=== PATIENT | female | born 1970 | race Caucasian/White ===

== ENCOUNTER 2020-11-30 15:23 | Outpatient (REF) | payer OTHER, SELFPAY | END 2020-11-30 15:24 | disposition home or self-care (01) | LOC: HO.LAB 15:23 | PROVIDERS: Visit Provider Internal Medicine | DX: Z20.822 Contact with and (suspected) exposure to COVID-19 (principal) | CPT/HCPCS: 36415; C9803; U0003 ==

== ENCOUNTER 2021-02-14 11:58 | Outpatient (REF) | payer OTHER, SELFPAY | END 2021-02-14 11:59 | disposition home or self-care (01) | LOC: HO.WFDLDS 11:58 | PROVIDERS: Visit Provider Internal Medicine | DX: Z20.822 Contact with and (suspected) exposure to COVID-19 (principal) | CPT/HCPCS: 36415; C9803; U0003; U0005 ==

== ENCOUNTER 2022-07-01 08:37 | Outpatient (REF) | payer OTHER, SELFPAY ==
[2022-07-01 11:24] LABS: MANUAL DIFF FLAG NO
[2022-07-01 11:28] LABS: Appearance Urine HAZY; Color Urine YELLOW; Glucose Urine UA NEG (NEG); Leukocyte Esterase Urine NEG (NEG); Nitrite Urine NEG (NEG); PH 6.5 (5.0-8.0); Urine Blood 2+ (NEG); Urine Ketones NEG (NEG); Urine Protein NEG (NEG-TRACE)
[2022-07-01 11:31] LABS: Basophils Percent Auto 0.7 % (0-2); Eosinophils Absolute Auto 0.2 X10*3/uL (0.0-0.4); Eosinophils Percent Auto 4.1 % (0-4); Hematocrit 39.6 % (37.0-47.0); Hemoglobin 12.6 g/dl (12.0-16.0); Imm Gran Abs Auto 0.01 X10*3/uL (0.00-0.03); Imm Gran Pct Auto 0.2 % (0.0-0.4); Lymphocytes Absolute Auto 1.1 X10*3/uL (1.2-4.9); Lymphocytes Percent Auto 26.6 % (20-40); Mean Corpuscular HGB Conc 31.8 g/dl (31.0-35.0); Mean Corpuscular Hemoglobin 26.8 pg (27.0-33.0); Mean Corpuscular Volume 84.3 fL (80.0-98.0); Mean Platelet Volume 11.3 fL (9.4-12.3); Monocytes Absolute Auto 0.4 X10*3/uL (0.1-1.2); Monocytes Percent Auto 8.5 % (2-11); Neutrophils Absolute Auto 2.5 x10*3/uL (2.0-8.3); Neutrophils Percent Auto 59.9 % (45-73); Platelet Count 212 X10*3/uL (160-400); Red Cell Distribution Width 13.5 % (11.0-16.0); White Blood Count 4.1 X10*3/uL (4.8-10.8)
[2022-07-01 11:59] LABS: Alanine Aminotransferase 13 U/L (0-31); Albumin Level 4.1 g/dL (3.5-5.0); Alkaline Phosphatase 61 U/L (39-117); Anion Gap 14 (12-20); Aspartate Amino Transferase 12 U/L (5-31); Bilirubin Total 0.5 mg/dL (0.0-1.0); Blood Urea Nitrogen 11 mg/dL (9-16); Calcium 9.2 mg/dL (8.4-10.2); Carbon Dioxide 25 mmol/L (22-29); Chloride 106 mmol/L (96-108); Cholesterol 227 mg/dL; Estimated Glomerular Filt Rate > 60; Glucose Fasting 100 mg/dL (60-99); HDL Cholesterol 57 mg/dL; LDL Cholesterol Calculated 150 mg/dl; Potassium 4.8 mmol/L (3.3-5.1); Sodium 140 mmol/L (135-145); Total Protein 6.9 g/dL (6.5-8.0); Triglycerides 102 mg/dL
[2022-07-01 12:00] LABS: Renal Epithelial Cells Urine TRACE /LPF; Squamous Epithelial Cell Urine 1+ /LPF; WBC Urine 0 /HPF (0-4)
== END 2022-07-01 08:38 | disposition home or self-care (01) ==
LOC: HO.HMGCLDS 08:37
PROVIDERS: PCP Internal Medicine; Visit Provider Internal Medicine
DX: Z00.00 Encounter for general adult medical examination without abnormal findings (principal)
CPT/HCPCS: 36415; 80053; 80061; 81001; 84443; 85025

== ENCOUNTER 2022-08-12 07:28 | Outpatient (REF) | payer OTHER, SELFPAY ==
--- NOTE | ~2022-08-12 | XR_ITS ---
EXAMINATION: XR PELVIS AND HIP, RIGHT XR KNEE STANDING, BILATERAL XR KNEE, RIGHT CLINICAL INFORMATION: Pain. COMPARISON: None TECHNIQUE: AP pelvis and right hip 2 views. AP bilateral knee standing and right knee 2 views. FINDINGS: AP PELVIS: There is normal symmetry of bilateral hip joints and SI joints. A small bone fragment is seen lateral to the right acetabulum, likely old avulsion injury. The pelvic bones are normal. The soft tissues are normal. RIGHT HIP: There is a small bone fragment adjacent to the lateral acetabulum, likely old injury. No acute fracture or dislocation seen. No lytic or sclerotic process seen. The soft tissues are normal. AP BILATERAL KNEE STANDING: There is mild reduction in the medial compartment joint space of both knees without bony erosive changes. The lateral compartment joint space is normal. There is a sclerotic density left distal femur, likely old bone infarct. Minimal lateral tibial spurring seen in the lateral compartment right knee. RIGHT KNEE: The patellofemoral compartment joint spaces are mildly narrowed with minimal suprapatellar joint effusion. No loose bodies, bony erosive changes or fracture seen. XR/XR knee RT 2V IMPRESSION: Small bone fragment adjacent to the right lateral acetabulum, likely old injury. No acute fracture or dislocation involving the pelvis or the right hip. Mild degenerative changes medial compartment both knees and patellofemoral compartment right knee. No visible fracture, dislocation or loose bodies. No joint effusion suspected right knee. Small bone infarct left distal femur and mild spurring right lateral tibial plateau.
--- NOTE | ~2022-08-12 | XR_ITS ---
EXAMINATION: XR PELVIS AND HIP, RIGHT XR KNEE STANDING, BILATERAL XR KNEE, RIGHT CLINICAL INFORMATION: Pain. COMPARISON: None TECHNIQUE: AP pelvis and right hip 2 views. AP bilateral knee standing and right knee 2 views. FINDINGS: AP PELVIS: There is normal symmetry of bilateral hip joints and SI joints. A small bone fragment is seen lateral to the right acetabulum, likely old avulsion injury. The pelvic bones are normal. The soft tissues are normal. RIGHT HIP: There is a small bone fragment adjacent to the lateral acetabulum, likely old injury. No acute fracture or dislocation seen. No lytic or sclerotic process seen. The soft tissues are normal. AP BILATERAL KNEE STANDING: There is mild reduction in the medial compartment joint space of both knees without bony erosive changes. The lateral compartment joint space is normal. There is a sclerotic density left distal femur, likely old bone infarct. Minimal lateral tibial spurring seen in the lateral compartment right knee. RIGHT KNEE: The patellofemoral compartment joint spaces are mildly narrowed with minimal suprapatellar joint effusion. No loose bodies, bony erosive changes or fracture seen. XR/XR knee standing BI IMPRESSION: Small bone fragment adjacent to the right lateral acetabulum, likely old injury. No acute fracture or dislocation involving the pelvis or the right hip. Mild degenerative changes medial compartment both knees and patellofemoral compartment right knee. No visible fracture, dislocation or loose bodies. No joint effusion suspected right knee. Small bone infarct left distal femur and mild spurring right lateral tibial plateau.
--- NOTE | ~2022-08-12 | XR_ITS ---
EXAMINATION: XR PELVIS AND HIP, RIGHT XR KNEE STANDING, BILATERAL XR KNEE, RIGHT CLINICAL INFORMATION: Pain. COMPARISON: None TECHNIQUE: AP pelvis and right hip 2 views. AP bilateral knee standing and right knee 2 views. FINDINGS: AP PELVIS: There is normal symmetry of bilateral hip joints and SI joints. A small bone fragment is seen lateral to the right acetabulum, likely old avulsion injury. The pelvic bones are normal. The soft tissues are normal. RIGHT HIP: There is a small bone fragment adjacent to the lateral acetabulum, likely old injury. No acute fracture or dislocation seen. No lytic or sclerotic process seen. The soft tissues are normal. AP BILATERAL KNEE STANDING: There is mild reduction in the medial compartment joint space of both knees without bony erosive changes. The lateral compartment joint space is normal. There is a sclerotic density left distal femur, likely old bone infarct. Minimal lateral tibial spurring seen in the lateral compartment right knee. RIGHT KNEE: The patellofemoral compartment joint spaces are mildly narrowed with minimal suprapatellar joint effusion. No loose bodies, bony erosive changes or fracture seen. XR/XR hip RT w PEL1V IMPRESSION: Small bone fragment adjacent to the right lateral acetabulum, likely old injury. No acute fracture or dislocation involving the pelvis or the right hip. Mild degenerative changes medial compartment both knees and patellofemoral compartment right knee. No visible fracture, dislocation or loose bodies. No joint effusion suspected right knee. Small bone infarct left distal femur and mild spurring right lateral tibial plateau.
== END 2022-08-12 07:29 | disposition home or self-care (01) ==
LOC: HO.HOSX 07:28
PROVIDERS: Visit Provider Physician Assistant
DX: M25.561 Pain in right knee (principal); M25.551 Pain in right hip; M25.562 Pain in left knee
CPT/HCPCS: 73502; 73560; 73565

== ENCOUNTER 2022-08-26 15:43 | Outpatient (REF) | payer OTHER, SELFPAY ==
--- NOTE | ~2022-08-26 | US_ITS ---
EXAMINATION: US PELVIS LIMITED (BLADDER) CLINICAL INFORMATION: Retention of urine. COMPARISON: None TECHNIQUE: Real-time imaging of the bladder. FINDINGS: BLADDER: Well distended and normal. Bilateral ureteral jets are demonstrated. Prevoid bladder volume is 597 mL. Postvoid bladder volume is 23 mL. US/US bladder IMPRESSION: Small postvoid residual bladder volume. Normal bilateral ureteral jets seen.
== END 2022-08-26 15:44 | disposition home or self-care (01) ==
LOC: HO.US 15:43
PROVIDERS: Visit Provider Internal Medicine
DX: R33.9 Retention of urine, unspecified (principal)
CPT/HCPCS: 76857

== ENCOUNTER 2022-09-22 10:22 | Outpatient (REF) | payer OTHER, SELFPAY ==
--- NOTE | ~2022-09-22 | XR_ITS ---
EXAMINATION: XR LUMBAR SPINE XR SACROILIAC JOINT CLINICAL INFORMATION: Radiculopathy COMPARISON: None TECHNIQUE: 7 views of the lumbosacral spine 3 views of the bilateral sacroiliac joints FINDINGS: No acute visible fracture or dislocation. Mild multilevel degenerative changes with disc space narrowing osteophyte formation and lower lumbar spine facet arthropathy. Vertebral body heights and disc spaces are maintained. Posterior elements are intact. Paraspinal soft tissues are unremarkable. Bilateral sacroiliac joints are patent. Visualized bowel gas is unremarkable. XR/XR lumbar spine 6V w bending IMPRESSION: 1. No acute visible fracture or dislocation. 2. Mild multilevel degenerative changes. 3. Bilateral sacroiliac joints are patent.
--- NOTE | ~2022-09-22 | US_ITS ---
EXAMINATION: US RETROPERITONEAL LIMITED (RENAL ONLY) CLINICAL INFORMATION: Other microscopic hematuria. COMPARISON: None TECHNIQUE: Real-time imaging of the kidneys. FINDINGS: RIGHT KIDNEY: 10.8 x 4.3 x 4.8 cm (SAG x AP x TRV). The kidney is normal in size, contour, and echogenicity. Renal cortical thickness is normal. No calculi or focal parenchymal lesions. No hydronephrosis. LEFT KIDNEY: 10.5 x 4.9 x 3.9 cm (SAG x AP x TRV). The kidney is normal in size, contour, and echogenicity. Renal cortical thickness is normal. No calculi or focal parenchymal lesions. No hydronephrosis. US/US renal BI IMPRESSION: No significant sonographic abnormality.
--- NOTE | ~2022-09-22 | XR_ITS ---
EXAMINATION: XR LUMBAR SPINE XR SACROILIAC JOINT CLINICAL INFORMATION: Radiculopathy COMPARISON: None TECHNIQUE: 7 views of the lumbosacral spine 3 views of the bilateral sacroiliac joints FINDINGS: No acute visible fracture or dislocation. Mild multilevel degenerative changes with disc space narrowing osteophyte formation and lower lumbar spine facet arthropathy. Vertebral body heights and disc spaces are maintained. Posterior elements are intact. Paraspinal soft tissues are unremarkable. Bilateral sacroiliac joints are patent. Visualized bowel gas is unremarkable. XR/XR sacroiliac joint min 3V IMPRESSION: 1. No acute visible fracture or dislocation. 2. Mild multilevel degenerative changes. 3. Bilateral sacroiliac joints are patent.
--- NOTE | ~2022-09-22 | XR_ITS ---
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 FINDINGS: No acute visible fracture or dislocation. Straightening of normal cervical curvature which may be secondary to patient positioning versus muscle spasm. Visualized dens is intact. Lateral masses are symmetric. Mild multilevel degenerative changes with disc space narrowing, osteophyte formation greatest at C6-C7, and facet arthropathy. Vertebral body heights and disc spaces are otherwise maintained. Prevertebral soft tissues are unremarkable. Posterior elements are intact. Paraspinal soft tissues are unremarkable. Visualized portions of the upper chest are unremarkable. XR/XR cervical spine 3V IMPRESSION: 1. No acute visible fracture or dislocation. 2. Straightening of normal cervical curvature which may be secondary to patient positioning versus muscle spasm. 3. Mild multilevel degenerative changes greatest at C6-C7.
== END 2022-09-22 10:23 | disposition home or self-care (01) ==
LOC: HO.HMGCX 10:22
PROVIDERS: Absent Provider Nurse Practitioner Family; PCP Internal Medicine; Visit Provider Internal Medicine
DX: R31.29 Other microscopic hematuria (principal); M47.816 Spondylosis without myelopathy or radiculopathy, lumbar region; M54.16 Radiculopathy, lumbar region; M53.3 Sacrococcygeal disorders, not elsewhere classified; M47.812 Spondylosis without myelopathy or radiculopathy, cervical region; M62.838 Other muscle spasm
CPT/HCPCS: 72040; 72114; 72202; 76775

== ENCOUNTER 2022-11-03 09:05 | Outpatient (REF) | payer OTHER, SELFPAY | END 2022-11-03 09:06 | disposition home or self-care (01) | LOC: HO.HOSX 09:05 | PROVIDERS: Visit Provider Physician Assistant | DX: Z13.89 Encounter for screening for other disorder (principal) ==

== ENCOUNTER 2022-11-10 07:30 | Outpatient (REF) | payer OTHER, SELFPAY | END 2022-11-10 07:31 | disposition home or self-care (01) | LOC: HO.HOSX 07:30 | PROVIDERS: Visit Provider Physician Assistant | DX: M25.551 Pain in right hip (principal) | CPT/HCPCS: 73502 ==

== ENCOUNTER 2022-12-08 09:00 | Outpatient (RCR) | payer OTHER, SELFPAY | END 2023-01-15 08:13 | disposition home or self-care (01) | LOC: HO.PTWFD 09:00 | PROVIDERS: PCP Internal Medicine; Visit Provider Nurse Practitioner Family | DX: M53.3 Sacrococcygeal disorders, not elsewhere classified (principal); M62.838 Other muscle spasm; M47.812 Spondylosis without myelopathy or radiculopathy, cervical region; M47.816 Spondylosis without myelopathy or radiculopathy, lumbar region; M54.16 Radiculopathy, lumbar region | CPT/HCPCS: 97110; 97140; 97161 ==

== ENCOUNTER 2023-02-24 15:17 | Outpatient (REF) | payer OTHER, SELFPAY ==
[2023-02-25 12:03] LABS: Influenza A PCR POSITIVE (Negative); Influenza B PCR NEGATIVE (Negative); Resp Syncy Virus RNA Qual PCR NEGATIVE (Negative); SARS COV2 PCR INHOUSE NEGATIVE (Negative)
== END 2023-02-24 15:18 | disposition home or self-care (01) ==
LOC: HO.LAB 15:17
PROVIDERS: Visit Provider Nurse Practitioner Family
DX: Z20.822 Contact with and (suspected) exposure to COVID-19 (principal); J06.9 Acute upper respiratory infection, unspecified
CPT/HCPCS: 0241U

== ENCOUNTER 2023-08-13 13:59 | Outpatient (AMB) | payer OTHER, SELFPAY ==
[2023-08-13 14:01] VITALS: BP 104/62; PULSE 68; O2SAT 96; BMI 28.2
--- NOTE | 2023-08-13 14:01 | MHC.PC.OV ---
Vital Signs 08/13/23 14:01 Height 5 ft 6 in Weight 175 lb BMI 28.2 BP 104/62 Blood Pressure Location Lt brachial Position Sitting Pulse 68 Pulse Source Pulse Oximeter Pulse Oximetry (%) 96 Oxygen Delivery Method Room Air Intake Visit Reasons: 3 month f/u hyperlipidemia Intake Note: Pt is here today for 3 months follow up visit. Allergies No Known Allergies Allergy (Verified 08/13/23 14:08) Medication List - Last Reconciled 08/13/23 by Miri Marlow MD No Known Home Meds Tobacco use date assessed: 08/13/23 Dental Screening Dental Screen Date: 08/13/23 Did you have a dental visit in the last 12 months?: Yes Did you have a dental problem in the last 6 months where you did not have access to dental care?: No Was dental information given to patient?: Patient has dentist HPI HPI Comments History of Present Illness Details Patient presents for physical. She complains of chronic lower back pain radiating to left lower extremity worse when sitting for long time. Patient denies any weakness or numbness in extremities. She had a lumbar spine x-ray consistent with mild degenerated changes a few months ago. [facility], [facility] Family History Father Lung cancer Mother No problems noted. Social History Housing: House Patient Tobacco Use Status: Never used Tobacco e-Cigarette/Vaping Use: Never Used service: No Current occupational status: unemployed Cognitive needs: No Hearing needs: No Vision needs: Yes Questionnaire Thrive Questionnaire Date Thrive assessed: 03/02/23 JJ-7 AMB Questionnaire JJ-7 Date JJ - 7 assessed: 03/02/23 Source: Developed by Drs. Ramesh Jackson, Tali Akins, Jose Manuel Allen and colleagues, with an educational derek from [employer]. Review of Systems Const All systems reviewed & are unremarkable except as noted in HPI and below Reports no additional complaints Eyes Reports no additional complaints ENT Reports no additional complaints Card Reports no additional complaints Resp Reports no additional complaints GI Reports no additional complaints Reports no additional complaints Physical exam (Primary Care) Vital Signs: Last Vital Signs Pulse 68 08/13/23 14:01 BP 104/62 08/13/23 14:01 Pulse Ox 96 08/13/23 14:01 Oxygen Delivery Method Room Air 08/13/23 14:01 BMI result Body Mass Index 28.2 Tobacco/Smoking Status: Tobacco use Status Tobacco use date assessed 08/13/23 08/13/23 14:12 Patient Tobacco Use Status Never used Tobacco 08/13/23 14:12 e-Cigarette/Vaping Use Never Used 08/13/23 14:04 Thrive Assessment: Date of Thrive Assessment Date Thrive assessed 03/02/23 08/13/23 14:04 Const General: no acute distress HENMT Head: Yes normal to inspection Ears: hearing grossly normal bilaterally General nose exam: Normal external nose present Face and sinus: Yes normal facial exam Mouth: Normal oral and palatal mucosa present Throat: Yes posterior oropharynx normal Eyes General: appearance normal, both eyes and all related structures Neck Neck: Yes no lymphadenopathy and Yes supple Resp Effort & Inspection: normal respiratory effort Auscultation: clear to auscultation bilaterally Cardio Rhythm: regular rhythm Heart sounds: S1 normal heart sound present and S2 normal heart sound present GI Inspection: Yes normal to inspection Palpation (GI): Soft to palpation Percussion: Yes normal to percussion Auscultation: normal bowel sounds Assessment and Plan Assessment & Plan (1) Hyperlipidemia: Code(s): E78.5 - Hyperlipidemia, unspecified Plan: Low-cholesterol diet regular physical activity fish oil supplement were recommended patient will return in 2 months for the fasting blood work (2) Lumbar radiculopathy: Code(s): M54.16 - Radiculopathy, lumbar region Plan: Lower back exercises given to the patient. If the symptoms persist she was advised to schedule physical therapy (3) Annual physical exam: Code(s): Z00.00 - Encounter for general adult medical examination without abnormal findings Plan: Well-balanced diet regular physical activity discussed with the patient. She is up-to-date with mammogram colonoscopy and Pap smear by ham trimmer (4) Normal pelvic exam: Comment: [facility] ham trimmer [place] 09/13 Code(s): Z01.419 - Encounter for gynecological examination (general) (routine) without abnormal findings (5) Hx of colonoscopy: Comment: Dr. Gee 2020, colonoscopy recheck in 5 years Code(s): Z98.890 - Other specified postprocedural states Orders: Orders Comprehensive [place]. Panel Fast 2 Months E78.5 - Hyperlipidemia, unspecified TSH reflex Free T4 2 Months E78.5 - Hyperlipidemia, unspecified TSH reflex Free T4 365 Days E78.5 - Hyperlipidemia, unspecified, Z00.00 - Encounter for general adult medical examination without abnormal findings Lipid Panel 2 Months E78.5 - Hyperlipidemia, unspecified Complete Blood Count Auto Diff 2 Months E78.5 - Hyperlipidemia, unspecified Comprehensive [place]. Panel Fast 365 Days E78.5 - Hyperlipidemia, unspecified, Z00.00 - Encounter for general adult medical examination without abnormal findings Lipid Panel 365 Days E78.5 - Hyperlipidemia, unspecified, Z00.00 - Encounter for general adult medical examination without abnormal findings Complete Blood Count Auto Diff 365 Days E78.5 - Hyperlipidemia, unspecified, Z00.00 - Encounter for general adult medical examination without abnormal findings Coding Level of Care Code Est Pt Prev Care 40-64y(37311) Diagnoses Hyperlipidemia E78.5 Lumbar radiculopathy M54.16 Annual physical exam Z00.00 Normal pelvic exam Z01.419 Hx of colonoscopy Z98.890
== END 2023-08-13 14:45 | disposition home or self-care (01) ==
PROVIDERS: PCP Internal Medicine; Visit Provider Internal Medicine
DX: Z00.00 Encounter for general adult medical examination without abnormal findings (principal); E78.5 Hyperlipidemia, unspecified; M54.16 Radiculopathy, lumbar region; Z98.890 Other specified postprocedural states
CPT/HCPCS: 99396

== ENCOUNTER 2024-06-06 10:52 | Outpatient (AMB) | payer OTHER, SELFPAY ==
--- NOTE | 2024-06-06 10:56 | A.OFFPC_ITS ---
Vital Signs 06/06/24 10:58 Height 5 ft 6 in Weight 173 lb BMI 27.9 BP 100/66 Blood Pressure Location Lt brachial Position Sitting Pulse 70 Pulse Source Pulse Oximeter Pulse Oximetry (%) 98 Oxygen Delivery Method Room Air Intake Visit Reasons: Liver pain Intake Note: Pt ios here today for a sick visit. Pt c/o R abdominal pain. Pt states that both sides are bothering her but mostly R side. Pt states that when she bends she gets burning sensation and sometimes sharp pain. Allergies No Known Allergies Allergy (Verified 08/13/23 14:08) Medication List - Last Reconciled 06/06/24 by Miri Marlow MD famotidine (Pepcid) 40 mg PO BEDTIME Tobacco use date assessed: 08/13/23 Dental Screening Dental Screen Date: 08/13/23 HPI Liver pain HPI Details Patient complains of right upper quadrant abdominal pain worse after eating fatty meals with occasional nausea but no vomiting for a few weeks getting, more frequent recently. Patient denies change in bowel habits fever chills back pain dysuria. [facility] Surgical History (Updated 06/06/24 @ 11:02 by ISAC Membreno) No pertinent past surgical history Family History Father Lung cancer Mother No problems noted. Social History Housing: House Patient Tobacco Use Status: Never used Tobacco e-Cigarette/Vaping Use: Never Used service: No Current occupational status: unemployed Cognitive needs: No Hearing needs: No Vision needs: Yes Questionnaire PHQ-9 Over the last 2 weeks, how often have you been bothered by any of the following problems? 1. Little interest or pleasure in doing things: not at all 2. Feeling down, depressed, or hopeless: not at all 3. Trouble falling or staying asleep, or sleeping too much: not at all 4. Feeling tired or having little energy: not at all 5. Poor appetite or overeating: not at all 6. Feeling bad about yourself - or that you are a failure or have let yourself or your family down: not at all 7. Trouble concentrating on things, such as reading the newspaper or watching television: not at all 8. Moving or speaking so slowly that other people could have noticed. Or the opposite - being so fidgety or restless that you have been moving around a lot more than usual: not at all 9. Thoughts that you would be better off or of hurting yourself in some way: not at all Total score: 0 Depression Screening Interpretation: Negative Depression Screening Done: Yes Source: Developed by Drs. Ramesh Jackson, Tali Akins, Jose Manuel lAlen and colleagues, with an educational derek from [email or web address]. Thrive Questionnaire Date Thrive assessed: 06/06/24 I am a: Patient What is your living situation today?: I have a steady place to live Within the past 12 months, did the food you bought not last and you didn't have the money to get more?: Never true Within the past 12 months, did you worry whether your food would run out before you got money to buy more?: Never true Do you have trouble paying for medicines?: No Do you have trouble getting transportation to medical appointments?: No Do you have trouble paying your heating and electricity bill?: No Do you have trouble taking care of your child, family member or friend?: No Do you have trouble with day-to-day activities such as bathing, preparing meals, shopping, managing finances, etc.?: No Are you currently unemployed and looking for a job?: No Are you interested in more education?: No Please select the resources that you would like help with: Housing/Senior Care Currently or been in a relationship where the following occur: No concerns reported THRIVE Score: 0 AUDIT C Alcohol Use Questionnaire (AUDIT-C) 1. How often do you have a drink containing alcohol?: Never Total Score: 0 JJ-7 AMB Questionnaire JJ-7 Date JJ - 7 assessed: 06/06/24 Feeling nervous, anxious, or on edge: 0 = Not at all Not being able to stop or control worryin = Not at all Worrying too much about different things: 0 = Not at all Trouble relaxin = Not at all Being so restless that it is hard to sit still: 0 = Not at all Becoming easily annoyed or irritable: 0 = Not at all Feeling afraid as if something awful might happen: 0 = Not at all Total JJ-7 score (0-4 normal; 5-9 mild; 10-14 moderate; 15-21 severe): 0 Source: Developed by Drs. Ramesh Jackson, Tali Akins, Jose Manuel Allen and colleagues, with an educational derek from [email or web address]. Review of Systems Const All systems reviewed & are unremarkable except as noted in HPI and below Eyes Reports no additional complaints ENT Reports no additional complaints Card Reports no additional complaints Resp Reports no additional complaints GI Reports no additional complaints Physical exam (Primary Care) Vital Signs: Last Vital Signs Pulse 70 06/06/24 10:58 BP 100/66 06/06/24 10:58 Pulse Ox 98 06/06/24 10:58 Oxygen Delivery Method Room Air 06/06/24 10:58 BMI result Body Mass Index 27.9 Tobacco/Smoking Status: Tobacco use Status Tobacco use date assessed 08/13/23 06/06/24 10:57 Patient Tobacco Use Status Never used Tobacco 06/06/24 10:57 e-Cigarette/Vaping Use Never Used 06/06/24 10:57 PHQ-9: PHQ-9 Score PHQ-9: Total score 0 06/06/24 11:03 Depression Screening Interpretation: Negative Thrive Assessment: Date of Thrive Assessment Date Thrive assessed 06/06/24 06/06/24 11:03 Currently or been in a relationship where the following occur: No concerns reported Const General: no acute distress HENMT Throat: Yes posterior oropharynx normal Eyes General: appearance normal, both eyes and all related structures Resp Effort & Inspection: normal respiratory effort Auscultation: clear to auscultation bilaterally Cardio Rhythm: regular rhythm Heart sounds: S1 normal heart sound present and S2 normal heart sound present GI Inspection: Yes normal to inspection Palpation (GI): Soft to palpation, Tenderness to palpation present (GI) in the RUQ; العراقي's sign negative and No Rebound tenderness present Percussion: Yes normal to percussion Auscultation: normal bowel sounds Assessment and Plan Assessment & Plan (1) RUQ abdominal pain: Code(s): R10.11 - Right upper quadrant pain Plan: Obtain abdominal ultrasound to rule out gallstones, check basic blood work and urinalysis. Try of 40 mg of Pepcid for 1 month Orders: Orders Comprehensive [place]. Panel Fast Today R10.9 - Unspecified abdominal pain Lipid Panel Today R10.9 - Unspecified abdominal pain Complete Blood Count Auto Diff Today R10.9 - Unspecified abdominal pain TSH reflex Free T4 Today R10.9 - Unspecified abdominal pain UA w Microscopic Today R10.9 - Unspecified abdominal pain US abdomen complete Today R10.11 - Right upper quadrant pain Medications: New famotidine (Pepcid) 40 mg PO BEDTIME 30 tabs 1RF Coding Level of Care Code Est Pt Level 3 (43525) Diagnoses RUQ abdominal pain R10.11
[2024-06-06 10:58] VITALS: BP 100/66; PULSE 70; O2SAT 98; BMI 27.9
== END 2024-06-06 11:40 | disposition home or self-care (01) ==
PROVIDERS: PCP Internal Medicine; Visit Provider Internal Medicine
DX: R10.11 Right upper quadrant pain (principal)
CPT/HCPCS: 99213

== ENCOUNTER 2024-06-06 11:36 | Outpatient (REF) | payer OTHER, SELFPAY ==
[2024-06-06 13:11] LABS: MANUAL DIFF FLAG NO
[2024-06-06 13:18] LABS: Appearance Urine Clear; Color Urine Yellow; Glucose Urine UA Negative (Negative); Leukocyte Esterase Urine Negative (Negative); Nitrite Urine Negative (Negative); PH 5.5 (5.0-9.0); Specific Gravity - Urine 1.025 (1.005-1.025); UMIC TRIGGER UA YES; Urine Blood Small (1+) (Negative); Urine Ketones Negative (Negative); Urine Protein Negative (Neg-Trace)
[2024-06-06 13:26] LABS: Bacteria Urine None Seen (None Seen); Hyaline Casts Urine 0-2 /LPF (0-2); WBC Urine 0-5 /HPF (0-5)
[2024-06-06 13:29] LABS: Eosinophils Absolute Auto 0.2 X10*3/uL (0.0-0.4); Eosinophils Percent Auto 4.2 % (0-4); Hematocrit 39.6 % (37.0-47.0); Imm Gran Abs Auto 0.01 X10*3/uL (0.00-0.03); Imm Gran Pct Auto 0.2 % (0.0-0.4); Lymphocytes Absolute Auto 1.4 X10*3/uL (1.2-4.9); Lymphocytes Percent Auto 33.3 % (20-40); Mean Corpuscular HGB Conc 32.8 g/dl (31.0-35.0); Mean Corpuscular Volume 85.3 fL (80.0-98.0); Mean Platelet Volume 10.7 fL (9.4-12.3); Monocytes Absolute Auto 0.3 X10*3/uL (0.1-1.2); Monocytes Percent Auto 7.6 % (2-11); Neutrophils Absolute Auto 2.2 x10*3/uL (2.0-8.3); Neutrophils Percent Auto 53.7 % (45-73); Platelet Count 224 X10*3/uL (160-400); Red Blood Count 4.64 X10*6/uL (4.20-5.50); Red Cell Distribution Width 13.2 % (11.0-16.0); White Blood Count 4.1 X10*3/uL (4.8-10.8)
[2024-06-06 14:02] LABS: Alanine Aminotransferase 16 U/L (0-31); Albumin Level 4.3 g/dL (3.5-5.0); Alkaline Phosphatase 52 U/L (39-117); Anion Gap 11 (12-20); Aspartate Amino Transferase 18 U/L (5-31); Bilirubin Total 0.5 mg/dL (0.0-1.0); Blood Urea Nitrogen 13 mg/dL (9-16); Calcium 9.7 mg/dL (8.4-10.2); Carbon Dioxide 26 mmol/L (22-29); Chloride 109 mmol/L (96-108); Cholesterol 238 mg/dL (<200); Estimated Glomerular Filt Rate > 60; Glucose Fasting 93 mg/dL (60-99); HDL Cholesterol 68 mg/dL (>40); LDL Cholesterol Calculated 157 mg/dL (<100); Sodium 141 mmol/L (135-145); Total Protein 7.2 g/dL (6.5-8.0); Triglycerides 69 mg/dL (<150)
[2024-06-06 14:17] LABS: TSH reflex Free T4 1.28 uIU/mL (0.32-4.0)
== END 2024-06-06 11:37 | disposition home or self-care (01) ==
LOC: HO.HMGCLDS 11:36
PROVIDERS: PCP Internal Medicine; Visit Provider Internal Medicine
DX: R10.9 Unspecified abdominal pain (principal); E78.5 Hyperlipidemia, unspecified
CPT/HCPCS: 36415; 80053; 80061; 81001; 84443; 85025

== ENCOUNTER 2024-06-08 11:26 | Outpatient (REF) | payer OTHER, SELFPAY ==
--- NOTE | ~2024-06-08 | US_ITS ---
EXAMINATION: US ABDOMEN COMPLETE CLINICAL INFORMATION: Right upper quadrant pain. COMPARISON: Renal ultrasound from 09/22/[address] scan from 09/18/2011 TECHNIQUE: Real-time imaging of the abdominal viscera. FINDINGS: PANCREAS: Normal. ABDOMINAL AORTA: The proximal, mid, and distal segments are normal in caliber. INFERIOR VENA CAVA: Visualized portions are normal. LIVER: Normal. The liver is normal in size. The liver contour is normal. Parenchymal echogenicity is normal. No focal hepatic lesion. There is no intrahepatic biliary duct dilatation seen. GALLBLADDER: Normal. The gallbladder is physiologically distended without evidence of stones, sludge, polyps, wall thickening or pericholecystic fluid. COMMON BILE DUCT: Normal in caliber measuring 0 point cm in diameter. RIGHT KIDNEY: Normal. No hydronephrosis. No renal calculi or focal parenchymal lesions. The kidney measures 11.2 cm in maximum dimension. LEFT KIDNEY: Normal. No hydronephrosis. No renal calculi or focal parenchymal lesions. The kidney measures 10.6 cm in maximum dimension. SPLEEN: Normal. The spleen measures 10.5 cm in maximum dimension. FREE FLUID: None. US/US abdomen complete IMPRESSION: Unremarkable study. No explanation for pain
== END 2024-06-08 11:27 | disposition home or self-care (01) ==
LOC: HO.HMGCX 11:26
PROVIDERS: PCP Internal Medicine; Visit Provider Internal Medicine
DX: R10.11 Right upper quadrant pain (principal)
CPT/HCPCS: 76700

== ENCOUNTER 2024-09-06 15:13 | Outpatient (REF) | payer SELFPAY ==
[2024-09-06 16:37] LABS: Blood Urea Nitrogen 10 mg/dL (9-16); Estimated Glomerular Filt Rate 58
== END 2024-09-06 15:14 | disposition home or self-care (01) ==
LOC: HO.HMGCLDS 15:13
PROVIDERS: PCP Internal Medicine; Visit Provider Internal Medicine
DX: R10.9 Unspecified abdominal pain (principal)
CPT/HCPCS: 36415; 82565; 84520

== ENCOUNTER 2024-09-12 10:16 | Outpatient (REF) | payer OTHER, SELFPAY ==
--- NOTE | ~2024-09-12 | CT_ITS ---
EXAMINATION: CT ABDOMEN AND PELVIS WITHOUT AND WITH CONTRAST CLINICAL INFORMATION: Calculus of the kidney. Microscopic hematuria. Nephrolithiasis. COMPARISON: None available. Correlated to ultrasound abdomen dated June 08, 2024. TECHNIQUE: Noncontrast CT of the abdomen and pelvis is performed followed by split bolus contrast-enhanced images using 85 mL Omnipaque 350 strength without immediate complications. Postcontrast imaging is performed during the combined nephrogram and excretion phase. Sagittal and coronal reformatted images were obtained on the technologist's workstation for both the precontrast and postcontrast phases. This CT examination was performed using dose optimization techniques as appropriate, variously including the following: *Automated exposure control *Adjustment of mA and/or kV according to patient size (this includes techniques or standardized protocols for targeted exams where dose is matched to indication/reason for exam; i.e. extremities or head) *Use of iterative reconstruction technique DLP: 832 mGy-cm FINDINGS: Submitted for interpretation on November 04, 2024. LUNG BASES: No acute airspace disease or gross pulmonary nodules. Small fat-containing herniation posterior medial left hemidiaphragm. LIVER, GALLBLADDER, AND BILIARY TREE: Liver measures 19 cm. No focal mass. Portal veins, bilaterally veins and intrahepatic portion of the IVC are patent. No intrahepatic biliary ductal dilatation. Fluid-filled gallbladder without pericholecystic fluid collection or gallbladder wall thickening. Common bile duct measures 4 mm. PANCREAS: No focal mass. No peripancreatic fluid collection. No main pancreatic ductal dilatation. SPLEEN: 9 cm. No focal mass. ADRENAL GLANDS: No nodular lesions. KIDNEYS AND URETERS: Right kidney: No hydronephrosis. No nephrolithiasis. No enhancing mass. Normal urinary excretion into the collecting system. Left kidney: No hydronephrosis. No nephrolithiasis. No renal mass. Normal enhancement pattern and urinary excretion into the collecting system. BLADDER: Fluid-filled and fills with contrast. GASTROINTESTINAL TRACT: Abundant stool. Collapsed appearance of the descending colon. No intestinal obstruction pattern. Small amount of ascites, cul-de-sac. No pneumoperitoneum. No peripheral enhancing fluid collection, peritoneal cavity. Appendix is normal. Hiatal hernia, small to moderate size.. ABDOMINAL WALL: Small fat-containing umbilical hernia. LYMPH NODES: Nonspecific prominent lymph nodes in the mesenteric and to a lesser extent retroperitoneum. Mesenteric edema pattern. VASCULAR: No aneurysm or dissection, abdominal aorta. Retroaortic trajectory of the left main renal vein. PELVIC VISCERA: Heterogeneous nodular prominent uterus. Heterogeneous soft tissue fullness in the cervix and questionable endocervical hypodensity. 1.5 cm cystic structure left adnexa, probably dominant follicle. OSSEUS STRUCTURES: Spondylosis L5-S1 CT/CT urogram IMPRESSION: No hydronephrosis or nephrolithiasis or gross renal mass. Probable uterine fibroids. Abnormal cervix. Recommend direct inspection. Small to moderate amount of free fluid in the cul-de-sac. Small to moderate size hiatal hernia. Fat-containing umbilical hernia. Spondylosis, L5-S1.. Electronically signed by: Ashish Mena MD 11/04/2024 03:29 PM [facility]
[2024-09-12] MEDS: iohexoL 350 MG/ML 100 ML INFUS..BTL 85 ML IV (11:15)
== END 2024-09-12 10:17 | disposition home or self-care (01) ==
LOC: HO.CT 10:16
PROVIDERS: PCP Internal Medicine; Visit Provider Internal Medicine
DX: N20.0 Calculus of kidney (principal); R31.29 Other microscopic hematuria
CPT/HCPCS: 74178; Q9967

== ENCOUNTER → 2024-09-12 10:18 | Outpatient (BNV) | payer OTHER, SELFPAY | PROVIDERS: PCP Internal Medicine; Visit Provider Radiology Diagnostic Radiology | DX: N20.0 Calculus of kidney (principal); R31.29 Other microscopic hematuria | CPT/HCPCS: 74178 ==

== ENCOUNTER 2025-05-29 09:59 | Outpatient (REF) | payer OTHER, SELFPAY ==
[2025-05-29 13:34] LABS: MANUAL DIFF FLAG NO
[2025-05-29 13:41] LABS: Hematocrit 38.7 % (37.0-47.0); Hemoglobin 12.7 g/dl (12.0-16.0); Imm Gran Abs Auto 0.01 X10*3/uL (0.00-0.03); Imm Gran Pct Auto 0.3 % (0.0-0.4); Lymphocytes Absolute Auto 1.2 X10*3/uL (1.2-4.9); Mean Corpuscular HGB Conc 32.8 g/dl (31.0-35.0); Mean Corpuscular Hemoglobin 27.6 pg (27.0-33.0); Mean Corpuscular Volume 84.1 fL (80.0-98.0); NRBC Abs Auto 0.000 X10*3/uL (0.0-0.012); NRBC Pct Auto 0.0 /100WBC (0.0-0.2); Platelet Count 200 X10*3/uL (160-400); Red Blood Count 4.60 X10*6/uL (4.20-5.50); White Blood Count 3.7 X10*3/uL (4.8-10.8)
[2025-05-29 15:14] LABS: Alanine Aminotransferase 28 U/L (0-31); Albumin Level 4.4 g/dL (3.5-5.0); Alkaline Phosphatase 61 U/L (39-117); Anion Gap 11 (12-20); Aspartate Amino Transferase 27 U/L (5-31); Blood Urea Nitrogen 17 mg/dL (9-16); Calcium 9.2 mg/dL (8.4-10.2); Carbon Dioxide 27 mmol/L (22-29); Chloride 109 mmol/L (96-108); Estimated Glomerular Filt Rate > 60; Potassium 5.1 mmol/L (3.3-5.1); Sodium 142 mmol/L (135-145); Total Protein 7.0 g/dL (6.5-8.0)
== END 2025-05-29 10:00 | disposition home or self-care (01) ==
LOC: HO.HMGCLDS 09:59
PROVIDERS: PCP Internal Medicine; Visit Provider Internal Medicine
DX: Z00.00 Encounter for general adult medical examination without abnormal findings (principal); E78.5 Hyperlipidemia, unspecified; R10.9 Unspecified abdominal pain; Z98.890 Other specified postprocedural states
CPT/HCPCS: 36415; 80053; 85025; 96127

== ENCOUNTER 2025-05-29 09:59 | Outpatient (AMB) | payer OTHER, SELFPAY ==
[2025-05-29 10:06] VITALS: BP 104/66; PULSE 63; RESP 18; TEMP 36.8; O2SAT 96; BMI 28.6
--- NOTE | 2025-05-29 10:06 | MHC.PC.OV ---
Vital Signs 05/29/25 10:06 Height 5 ft 6 in Weight 177 lb BMI 28.6 BP 104/66 Blood Pressure Location Lt brachial Position Sitting Respiration 18 Pulse 63 Pulse Source Pulse Oximeter Temp 98.2 F Temp Source Oral Pulse Oximetry (%) 96 Oxygen Delivery Method Room Air Intake Visit Reasons: Annual PE Intake Note: Pt is here today for PE. Allergies No Known Allergies Allergy (Verified 05/29/25 10:09) Medication List - Last Reconciled 05/29/25 by Miri Marlow MD No Known Home Meds Tobacco use date assessed: 05/29/25 Dental Screening Dental Screen Date: 05/29/25 Did you have a dental visit in the last 12 months?: Yes Did you have a dental problem in the last 6 months where you did not have access to dental care?: No Was dental information given to patient?: Patient has dentist HPI Annual PE HPI Details Pt presents for PE. PFSH Surgical History No pertinent past surgical history Family History Father Lung cancer Mother No problems noted. Social History Housing: House Patient Tobacco Use Status: Never used Tobacco e-Cigarette/Vaping Use: Never Used service: No Current occupational status: unemployed Cognitive needs: No Hearing needs: No Vision needs: Yes Questionnaire PHQ-9 Over the last 2 weeks, how often have you been bothered by any of the following problems? 1. Little interest or pleasure in doing things: not at all 2. Feeling down, depressed, or hopeless: not at all 3. Trouble falling or staying asleep, or sleeping too much: not at all 4. Feeling tired or having little energy: more than half the days 5. Poor appetite or overeating: not at all 6. Feeling bad about yourself - or that you are a failure or have let yourself or your family down: not at all 7. Trouble concentrating on things, such as reading the newspaper or watching television: not at all 8. Moving or speaking so slowly that other people could have noticed. Or the opposite - being so fidgety or restless that you have been moving around a lot more than usual: not at all 9. Thoughts that you would be better off or of hurting yourself in some way: not at all Total score: 2 Depression Screening Interpretation: Negative Depression Screening Done: Yes 11678 - PHQ-9 Billing: Yes Source: Developed by Drs. Ramesh Jackson, Tali Akins, Jose Manuel Allen and colleagues, with an educational derek from [employer]. Thrive Questionnaire Date Thrive assessed: 05/29/25 I am a: Patient What is your living situation today?: I have a steady place to live Within the past 12 months, did the food you bought not last and you didn't have the money to get more?: Often true Within the past 12 months, did you worry whether your food would run out before you got money to buy more?: Often true Do you have trouble paying for medicines?: No Do you have trouble getting transportation to medical appointments?: No Do you have trouble paying your heating and electricity bill?: No Do you have trouble taking care of your child, family member or friend?: Yes Do you have trouble with day-to-day activities such as bathing, preparing meals, shopping, managing finances, etc.?: No Are you currently unemployed and looking for a job?: No Are you interested in more education?: No Please select the resources that you would like help with: None Currently or been in a relationship where the following occur: No concerns reported THRIVE Score: 2 AUDIT C Alcohol Use Questionnaire (AUDIT-C) 1. How often do you have a drink containing alcohol?: Never 3. How often do you have six or more drinks on one occasion?: Never Total Score: 0 JJ-7 AMB Questionnaire JJ-7 Date JJ - 7 assessed: 05/29/25 Feeling nervous, anxious, or on edge: 0 = Not at all Not being able to stop or control worryin = Not at all Worrying too much about different things: 0 = Not at all Trouble relaxin = Not at all Being so restless that it is hard to sit still: 0 = Not at all Becoming easily annoyed or irritable: 1 = Several days Feeling afraid as if something awful might happen: 0 = Not at all Total JJ-7 score (0-4 normal; 5-9 mild; 10-14 moderate; 15-21 severe): 1 Source: Developed by Drs. Ramesh Jackson, Tali Akins, Jose Manuel Allen and colleagues, with an educational derek from [employer]. JJ-7 Assessment Billing JJ-7 Assessment Tool: JJ-7 Assessment 26270 Review of Systems Const All systems reviewed & are unremarkable except as noted in HPI and below Reports no additional complaints Eyes Reports no additional complaints ENT Reports no additional complaints Card Reports no additional complaints Resp Reports no additional complaints GI Reports no additional complaints Reports no additional complaints Physical exam (Primary Care) Vital Signs: Last Vital Signs Temp 98.2 F 05/29/25 10:06 Pulse 63 05/29/25 10:06 Resp 18 05/29/25 10:06 BP 104/66 05/29/25 10:06 Pulse Ox 96 05/29/25 10:06 Oxygen Delivery Method Room Air 05/29/25 10:06 BMI result Body Mass Index 28.6 Tobacco/Smoking Status: Tobacco use Status Tobacco use date assessed 05/29/25 05/29/25 10:14 Patient Tobacco Use Status Never used Tobacco 05/29/25 10:14 e-Cigarette/Vaping Use Never Used 05/29/25 10:07 PHQ-9: PHQ-9 Score PHQ-9: Total score 2 05/29/25 10:34 Depression Screening Interpretation: Negative Thrive Assessment: Date of Thrive Assessment Date Thrive assessed 05/29/25 05/29/25 10:14 Currently or been in a relationship where the following occur: No concerns reported Const General: no acute distress HENMT Head: Yes normal to inspection Ears: hearing grossly normal bilaterally General nose exam: Normal external nose present Mouth: Normal oral and palatal mucosa present Eyes General: appearance normal, both eyes and all related structures Neck Neck: Yes no lymphadenopathy and Yes supple Resp Effort & Inspection: normal respiratory effort Auscultation: clear to auscultation bilaterally Cardio Rhythm: regular rhythm Heart sounds: S1 normal heart sound present and S2 normal heart sound present GI Inspection: Yes normal to inspection Palpation (GI): Soft to palpation Percussion: Yes normal to percussion Auscultation: normal bowel sounds Coding Level of Care Code Est Pt Prev Care 40-64y(48072) Diagnoses Hx of colonoscopy Z98.890 Hyperlipidemia E78.5 Annual physical exam Z00.00 Additional Codes JJ-7 Assessment Billing - JJ-7 Assessment Tool: JJ-7 Assessment 02570 ([id number]) PHQ-9 - 76890 - PHQ-9 Billing: Yes ([id number]) Assessment & Plan Assessment & Plan (1) Hx of colonoscopy: Comment: Dr. Gee 2020, colonoscopy recheck in 5 years Code(s): Z98.890 - Other specified postprocedural states Category: Surgical Plan: up to date with GI (2) Hyperlipidemia: Comment: pt declined taking medication Code(s): E78.5 - Hyperlipidemia, unspecified Category: Medical Plan: low cholesterol diet regular physical activity discussed with the patient (3) Annual physical exam: Code(s): Z00.00 - Encounter for general adult medical examination without abnormal findings Category: Medical Plan: Well-balanced diet regular physical activity discussed with the patient. For perimenopausal symptoms patient was advised to try estroven supplement and she is established with [facility]. Patient will have a fasting blood work today Orders: Orders TSH reflex Free T4 Today E78.5 - Hyperlipidemia, unspecified Vitamin D 25-OH Total Today E78.5 - Hyperlipidemia, unspecified, Z00.00 - Encounter for general adult medical examination without abnormal findings Lipid Panel Today E78.5 - Hyperlipidemia, unspecified Comprehensive Rhame. Panel Fast 1 Year E78.5 - Hyperlipidemia, unspecified, Z00.00 - Encounter for general adult medical examination without abnormal findings Lipid Panel 1 Year E78.5 - Hyperlipidemia, unspecified, Z00.00 - Encounter for general adult medical examination without abnormal findings Complete Blood Count Auto Diff 1 Year E78.5 - Hyperlipidemia, unspecified, Z00.00 - Encounter for general adult medical examination without abnormal findings TSH reflex Free T4 1 Year E78.5 - Hyperlipidemia, unspecified, Z00.00 - Encounter for general adult medical examination without abnormal findings
== END 2025-05-29 11:13 | disposition home or self-care (01) ==
LOC: HO.HMCC 10:00
PROVIDERS: PCP Internal Medicine; Visit Provider Internal Medicine
DX: Z98.890 Other specified postprocedural states (principal); E78.5 Hyperlipidemia, unspecified; Z00.00 Encounter for general adult medical examination without abnormal findings